=== PATIENT | male | born 1960 | race Caucasian/White ===

== ENCOUNTER 2020-06-25 18:16 | Observation (INO) | payer OTHER ==
[~2020-06-25] VITALS: Ht 177.8 cm; Wt 100.7 kg
[2020-06-25] MEDS ORDERED: ASPIRIN 81 MG CHEW TAB PO ONE (18:45)
[2020-06-25 19:13] LABS: BASOPHILS # (AUTO) 0.1 (0.0-0.1); BASOPHILS % 0.8 % (0.0-1.0); EOSINOPHILS # (AUTO) 0.3 (0.0-0.4); EOSINOPHILS % 3.3 % (0.0-6.0); HEMOGLOBIN 15.6 g/dL (14.0-18.0); LYMPHOCYTES # (AUTO) 2.8 (1.0-3.2); LYMPHOCYTES % 30.2 % (18.0-39.1); MEAN CORPUSCULAR HEMOGLOBIN 30.6 pg (28-32); MEAN CORPUSCULAR HGB CONC 36.3 g/dL (31-35); MEAN CORPUSCULAR VOLUME 84.5 fL (81-99); MONOCYTES # (AUTO) 0.9 (0.2-0.8); NEUTROPHILS # (AUTO) 5.2 (2.1-6.9); NEUTROPHILS % 55.5 % (38.7-80.0); PLATELET COUNT 349 x10e3/uL (140-360); RED BLOOD COUNT 5.09 x10e6/uL (4.3-5.7); RED CELL DISTRIBUTION WIDTH 12.4 % (11.7-14.4)
[2020-06-25 19:22] LABS: INR 0.88; PROTHROMBIN TIME 12.4 seconds (11.9-14.5)
[2020-06-25 19:23] LABS: PARTIAL THROMBOPLASTIN TIME 32.3 seconds (23.8-35.5)
[2020-06-25 19:32] LABS: ALANINE AMINOTRANSFERASE 43 IU/L (0-55); ALBUMIN 4.4 g/dL (3.5-5.0); ALBUMIN/GLOBULIN RATIO 1.4 (0.8-2.0); ALKALINE PHOSPHATASE 63 IU/L (40-150); ANION GAP 17.3 mmol/L (8-16); BLOOD UREA NITROGEN 20 mg/dL (7-26); BUN/CREATININE RATIO 17 (6-25); CALCIUM 9.8 mg/dL (8.4-10.2); CARBON DIOXIDE 25 mmol/L (22-29); CHLORIDE 104 mmol/L (98-107); CREATINE KINASE 185 IU/L (30-200); CREATININE, SERUM 1.17 mg/dL (0.72-1.25); EST GLOMERULAR FILTRATION RATE > 60 ML/MIN (60-); GLUCOSE 148 mg/dL (74-118); POTASSIUM 4.3 mmol/L (3.5-5.1); SODIUM 142 mmol/L (136-145)
[2020-06-25] MEDS ORDERED: CLOPIDOGREL BISULFATE 75 MG TAB PO ONE (21:30)
[2020-06-25] MEDS ORDERED: MORPHINE SULFATE 2 MG/ML SYR 1ML IV PRN (21:45)
[2020-06-25] MEDS ORDERED: DEXTROSE 50% SYRINGE 50 ML IV PRN (21:45)
[2020-06-25] MEDS ORDERED: ONDANSETRON HCL INJ 2MG/ML 2ML 2 MG/ML VIAL IV PRN (21:45)
[2020-06-25] MEDS: FAMOTIDINE 20 MG/2 ML VIAL IV SCH (22:24)
[2020-06-25] MEDS ORDERED: HUMALOG MI100 UNITS/ SQ (23:16)
[2020-06-25] MEDS ORDERED: METFORMIN HCL500 MG PO (23:16)
[2020-06-25] MEDS ORDERED: ATENOLOL50 MG PO (23:16)
[2020-06-25] MEDS ORDERED: FISH OIL 1,0001 EAC2 PO (23:16)
[2020-06-25] MEDS ORDERED: DIOVAN80 MG PO (23:16)
[2020-06-25 23:49] VITALS: BP 160/94
[2020-06-26] VITALS (15 sets, daily range): BP systolic 119–152; BP diastolic 78–104
[2020-06-26] MEDS ORDERED: HYDROCHLOROTHIA25 MG PO (00:17)
[2020-06-26 06:59] LABS: CHOL/HDL RATIO 4.9 (3.9-4.7)
[2020-06-26 07:25] LABS: CREATINE KINASE 119 IU/L (30-200)
[2020-06-26] MEDS: INSULIN REGULAR, HUMAN 100 UNIT/1 ML 3ML VIAL SQ SCH ×3 (07:30→16:30)
[2020-06-26] MEDS: SODIUM CHLORIDE 0.9% 1000ML 1,000 ML IV SCH ×2 (08:45→16:45)
[2020-06-26] MEDS ORDERED: ATENOLOL 50 MG TAB PO SCH (09:00)
[2020-06-26] MEDS: FAMOTIDINE 20 MG/2 ML VIAL IV SCH (09:00)
[2020-06-26] MEDS ORDERED: VALSARTAN 160 MG TAB PO SCH (09:00)
[2020-06-26] MEDS ORDERED: MIDAZOLAM HCL 2 MG/2 ML VIAL ONE (10:19)
[2020-06-26] MEDS ORDERED: FENTANYL CITRATE/PF 100MCG/2 ML INJ ONE (10:21)
[2020-06-26] MEDS ORDERED: LIDOCAINE HCL 2% LOCAL 20 ML VIAL ONE (10:21)
[2020-06-26] MEDS ORDERED: HEPARIN SOD/SOD CHLORIDE 2,000 ML ONE (10:22)
[2020-06-26] MEDS ORDERED: IOPAMIDOL 370 MG/ML 200 ML INFUS..BTL INJ ONE (10:22)
[2020-06-26] MEDS ORDERED: SODIUM CHLORIDE 0.9% 1000ML 1,000 ML ONE (10:22)
== END 2020-06-26 16:45 | disposition home or self-care (01) ==
LOC: ER 19:20 → ERHOLD 21:45 → MED/SURG2 22:25
PROVIDERS: ADMIT Internal Medicine; ATTEND Internal Medicine
DX: R07.9 Chest pain, unspecified (principal); I10 Essential (primary) hypertension; E11.9 Type 2 diabetes mellitus without complications; E78.5 Hyperlipidemia, unspecified; Z87.891 Personal history of nicotine dependence; Z88.1 Allergy status to other antibiotic agents; Z88.8 Allergy status to other drugs, medicaments and biological substances; I20.0 Unstable angina; Z87.442 Personal history of urinary calculi; U07.1 COVID-19; Z79.4 Long term (current) use of insulin
CPT/HCPCS: 36415 ×2; 71045; 80053; 80061; 82550 ×2; 82553 ×2; 84484 ×2; 85025; 85610; 85730; 93005; 93306; 93458; 99284; C1766; C1887; G0378 ×2; J2001; J2250; J3010; J7030; Q9967; U0002; 99152

== ENCOUNTER 2024-09-03 14:37 | Emergency (ER) | payer BC, OTHER ==
[~2024-09-03] VITALS: Ht 177.8 cm; Wt 95.3 kg
[~2024-09-03 14:37] MED LIST: ATENOLOL50 MG PO; DIOVAN80 MG PO; FISH OIL 1,0001 EAC2 PO; HUMALOG MI100 UNITS/ SQ; HYDROCHLOROTHIA25 MG PO; METFORMIN HCL500 MG PO
[2024-09-03 14:42] VITALS: TEMP 97.7
[2024-09-03 15:05] LABS: BASOPHILS # (AUTO) 0.1 (0.0-0.1); BASOPHILS % 0.5 % (0.0-1.0); EOSINOPHILS # (AUTO) 0.2 (0.0-0.4); EOSINOPHILS % 2.2 % (0.0-6.0); HEMATOCRIT 40.7 % (38.2-49.6); HEMOGLOBIN 12.8 g/dL (14.0-18.0); LYMPHOCYTES # (AUTO) 2.4 (1.0-3.2); LYMPHOCYTES % 24.4 % (18.0-39.1); MEAN CORPUSCULAR HEMOGLOBIN 30.3 pg (28-32); MEAN CORPUSCULAR HGB CONC 31.4 g/dL (31-35); MEAN CORPUSCULAR VOLUME 96.4 fL (81-99); MONOCYTES # (AUTO) 0.7 (0.2-0.8); MONOCYTES % 7.3 % (4.4-11.3); NEUTROPHILS # (AUTO) 6.3 (2.1-6.9); NEUTROPHILS % 65.2 % (38.7-80.0); PLATELET COUNT 259 x10e3/uL (140-360); RED BLOOD COUNT 4.22 x10e6/uL (4.3-5.7); RED CELL DISTRIBUTION WIDTH 13.3 % (11.7-14.4); WHITE BLOOD COUNT 9.63 x10e3/uL (4.8-10.8)
[2024-09-03] MEDS ORDERED: VIIBRYD20 MG PO (15:06)
[2024-09-03] MEDS ORDERED: ATENOLOL25 MG PO (15:06)
[2024-09-03] MEDS ORDERED: ALLOPURINOL300 MG PO (15:06)
[2024-09-03] MEDS ORDERED: HYDRALAZINE HCL50 MG PO (15:06)
[2024-09-03] MEDS ORDERED: ALLOPURINOL100 MG PO (15:06)
[2024-09-03] MEDS ORDERED: DIOVAN160 MG PO (15:06)
[2024-09-03] MEDS ORDERED: TRULICITY1.5 MG/0.5 SQ (15:06)
[2024-09-03] MEDS ORDERED: HUMALOG MI100 UNIT/2 SQ (15:06)
[2024-09-03] MEDS ORDERED: CLOPIDOGREL75 MG PO (15:06)
[2024-09-03 15:21] LABS: INR 0.94; PROTHROMBIN TIME 13.1 seconds (11.9-14.5)
[2024-09-03 15:22] LABS: PARTIAL THROMBOPLASTIN TIME 33.1 seconds (23.8-35.5)
[2024-09-03 15:29] LABS: ALBUMIN 4.1 g/dL (3.5-5.0); ALBUMIN/GLOBULIN RATIO 1.3 (0.8-2.0); ANION GAP 16.3 mmol/L (8-16); BILIRUBIN,TOTAL 0.4 mg/dL (0.2-1.2); CREATININE, SERUM 1.39 mg/dL (0.72-1.25); POTASSIUM 4.3 mmol/L (3.5-5.1); TOTAL PROTEIN 7.2 g/dL (6.5-8.1)
[2024-09-03] MEDS ORDERED: SODIUM CHLORIDE 0.9% 100 ML ONE (15:33)
[2024-09-03] MEDS ORDERED: IOPAMIDOL 370 MG/ML 100 ML INFUS..BTL INJ ONE (15:33)
[2024-09-03 16:39] VITALS: PULSE 78; RESP 18; O2SAT 98
== END 2024-09-03 16:41 | disposition home or self-care (01) ==
LOC: ER 14:42
DX: K92.1 Melena (principal); I10 Essential (primary) hypertension; E11.65 Type 2 diabetes mellitus with hyperglycemia; Z85.46 Personal history of malignant neoplasm of prostate; Z86.73 Personal history of transient ischemic attack (TIA), and cerebral infarction without residual deficits
CPT/HCPCS: 36415; 74174; 80053; 85025; 85610; 85730; 99283; J7050; Q9967

== ENCOUNTER 2024-09-03 23:00 | Inpatient (IN) | payer BC ==
[~2024-09-03] VITALS: Ht 177.8 cm; Wt 95.3 kg
[~2024-09-03 23:00] MED LIST changes: +ALLOPURINOL100 MG PO; +ALLOPURINOL300 MG PO; +ATENOLOL25 MG PO; +CLOPIDOGREL75 MG PO; +DIOVAN160 MG PO; +HUMALOG MI100 UNIT/2 SQ; +HYDRALAZINE HCL50 MG PO; +TRULICITY1.5 MG/0.5 SQ; +VIIBRYD20 MG PO
[2024-09-03 23:10] VITALS: TEMP 98
[2024-09-03 23:57] LABS: BASOPHILS # (AUTO) 0.1 (0.0-0.1); BASOPHILS % 0.6 % (0.0-1.0); EOSINOPHILS # (AUTO) 0.2 (0.0-0.4); HEMATOCRIT 33.5 % (38.2-49.6); HEMOGLOBIN 10.6 g/dL (14.0-18.0); LYMPHOCYTES # (AUTO) 3.2 (1.0-3.2); LYMPHOCYTES % 31.3 % (18.0-39.1); MEAN CORPUSCULAR HEMOGLOBIN 30.6 pg (28-32); MEAN CORPUSCULAR HGB CONC 31.6 g/dL (31-35); MEAN CORPUSCULAR VOLUME 96.8 fL (81-99); MONOCYTES # (AUTO) 0.9 (0.2-0.8); MONOCYTES % 8.6 % (4.4-11.3); NEUTROPHILS # (AUTO) 5.9 (2.1-6.9); NEUTROPHILS % 56.9 % (38.7-80.0); PLATELET COUNT 275 x10e3/uL (140-360); RED BLOOD COUNT 3.46 x10e6/uL (4.3-5.7); RED CELL DISTRIBUTION WIDTH 13.5 % (11.7-14.4); WHITE BLOOD COUNT 10.29 x10e3/uL (4.8-10.8)
[2024-09-04] VITALS (8 sets, daily range): BP systolic 118–158; BP diastolic 73–87; PULSE 68–82; RESP 16–20; TEMP 97.8–98.2; O2SAT 98–100
[2024-09-04 00:07] LABS: INR 0.89; PROTHROMBIN TIME 12.6 seconds (11.9-14.5)
[2024-09-04 00:16] LABS: ALBUMIN 3.9 g/dL (3.5-5.0); ALBUMIN/GLOBULIN RATIO 1.6 (0.8-2.0); ANION GAP 20.1 mmol/L (8-16); BILIRUBIN,TOTAL 0.3 mg/dL (0.2-1.2); CALCIUM 9.7 mg/dL (8.4-10.2); CREATININE, SERUM 1.39 mg/dL (0.72-1.25); POTASSIUM 4.1 mmol/L (3.5-5.1); TOTAL PROTEIN 6.4 g/dL (6.5-8.1)
[2024-09-04 00:28] LABS: TROPONIN I < 0.05 ng/mL (0.0-0.40)
[2024-09-04 00:51] LABS: CREATINE KINASE 98 IU/L (30-200)
[2024-09-04] MEDS ORDERED: SODIUM CHLORIDE 0.9% 1000ML 1,000 ML ONE (01:11)
[2024-09-04] MEDS: SODIUM CHLORIDE 0.9% 1000ML 1,000 ML IV STA (01:16)
[2024-09-04] MEDS: ONDANSETRON HCL INJ 2MG/ML 2ML 2 MG/ML VIAL IV STA (01:16)
[2024-09-04] MEDS: SODIUM CHLORIDE 0.9% 1000ML 1,000 ML IV SCH (02:45)
[2024-09-04] MEDS: Morphine 2mg Syringe 2 MG/ML SYR IV PRN (03:07)
[2024-09-04 07:36] LABS: TROPONIN I 0.009 ng/mL (0-0.300)
[2024-09-04 08:25] LABS: BACTERIA,URINE FEW /HPF; BILIRUBIN,URINE NEGATIVE (NEGATIVE); CLARITY,URINE CLEAR (CLEAR); COLOR,URINE YELLOW (YELLOW); EPITHELIAL CELLS,URINE FEW /LPF; GLUCOSE, URINE 2+ (NEGATIVE); KETONES,URINE TRACE (NEGATIVE); LEUKOCYTE ESTERASE ,URINE NEGATIVE (NEGATIVE); NITRITE,URINE NEGATIVE (NEGATIVE); PH,URINE 5.5 (5 - 7); PROTEIN,URINE DIPSTICK NEGATIVE (NEGATIVE); RBC,URINE 0-5 /HPF (0-5); URINE UROBILINOGEN 0.2 mg/dL (0.2 - 1); WBC,URINE (MAN) 0-5 /HPF (0-5)
[2024-09-04] MEDS ORDERED: HYDRALAZINE HCL 20 MG/ML VIAL IV PRN (11:00)
[2024-09-04] MEDS ORDERED: DEXTROSE 50% SYRINGE 50 ML IV PRN (11:00)
[2024-09-04] MEDS: INSULIN LISPRO 100 UNIT/1 ML 3ML VIAL SQ SCH (11:30)
[2024-09-04 13:23] LABS: HEMATOCRIT 28.1 % (38.2-49.6); HEMOGLOBIN 8.7 g/dL (14.0-18.0)
[2024-09-04 16:59] LABS: % IRON SATURATION 36 % (15-50); IRON 106 ug/dL (65-175); TOTAL IRON BINDING CAPACITY 298 ug/dL (261-478); TRANSFERRIN 213 mg/dL (174-364)
[2024-09-04 17:17] LABS: TROPONIN I 0.009 ng/mL (0-0.300)
[2024-09-04] MEDS: VALSARTAN 160 MG TAB PO SCH (17:29)
[2024-09-04] MEDS: ATENOLOL 50 MG TAB PO SCH (17:29)
[2024-09-04] MEDS: HYDRALAZINE HCL 25 MG TAB PO SCH (17:30)
[2024-09-04] MEDS: ALLOPURINOL 100 MG TAB PO SCH (21:03)
[2024-09-04] MEDS: CYANOCOBALAMIN INJ 1,000 MCG/ML VIAL IM ONE (22:22)
[2024-09-05] VITALS (9 sets, daily range): BP systolic 116–148; BP diastolic 60–79; PULSE 67–75; RESP 18–20; TEMP 97.5–98.6; O2SAT 97–99
[2024-09-05 06:09] LABS: BASOPHILS # (AUTO) 0.1 (0.0-0.1); BASOPHILS % 0.6 % (0.0-1.0); EOSINOPHILS # (AUTO) 0.2 (0.0-0.4); EOSINOPHILS % 2.4 % (0.0-6.0); HEMATOCRIT 22.9 % (38.2-49.6); LYMPHOCYTES # (AUTO) 3.1 (1.0-3.2); LYMPHOCYTES % 36.5 % (18.0-39.1); MEAN CORPUSCULAR HEMOGLOBIN 30.8 pg (28-32); MEAN CORPUSCULAR HGB CONC 31.4 g/dL (31-35); MEAN CORPUSCULAR VOLUME 97.9 fL (81-99); MONOCYTES # (AUTO) 0.5 (0.2-0.8); MONOCYTES % 6.2 % (4.4-11.3); NEUTROPHILS # (AUTO) 4.6 (2.1-6.9); NEUTROPHILS % 53.9 % (38.7-80.0); PLATELET COUNT 194 x10e3/uL (140-360); RED BLOOD COUNT 2.34 x10e6/uL (4.3-5.7); RED CELL DISTRIBUTION WIDTH 13.3 % (11.7-14.4); WHITE BLOOD COUNT 8.51 x10e3/uL (4.8-10.8)
[2024-09-05 06:11] LABS: HEMOGLOBIN 7.2 g/dL (14.0-18.0)
[2024-09-05 06:38] LABS: ALBUMIN/GLOBULIN RATIO 1.6 (0.8-2.0); BILIRUBIN,TOTAL 0.4 mg/dL (0.2-1.2); CALCIUM 8.2 mg/dL (8.4-10.2); CREATININE, SERUM 0.97 mg/dL (0.72-1.25); TOTAL PROTEIN 4.9 g/dL (6.5-8.1)
[2024-09-05] MEDS: CYANOCOBALAMIN INJ 1,000 MCG/ML VIAL IM SCH (09:33)
[2024-09-05] MEDS: OMEGA 3 POLYUNSAT FATTY ACIDS 1000 MG SOFTGEL PO SCH (09:34)
[2024-09-05] MEDS: BISACODYL 5 MG TAB EC PO ONE ×2 (12:37→16:57)
[2024-09-05] MEDS: PEG (High)/E-LYTE SOLN 4,000 ML BTL PO ONE (12:38)
[2024-09-05 16:37] LABS: HEMATOCRIT 24.1 % (38.2-49.6); HEMOGLOBIN 7.6 g/dL (14.0-18.0)
[2024-09-05] MEDS: SODIUM CHLORIDE 0.9% 1000ML 1,000 ML IV SCH (16:52)
[2024-09-06] MEDS: CITRATE OF MAGNESIA 300ML BOTTLE PO ONE ×2 (00:52→04:28)
[2024-09-06 03:14] VITALS: BP 148/80; PULSE 85; RESP 18; TEMP 97.8; O2SAT 99
[2024-09-06 06:13] LABS: BASOPHILS % 0.3 % (0.0-1.0); EOSINOPHILS # (AUTO) 0.2 (0.0-0.4); EOSINOPHILS % 2.5 % (0.0-6.0); HEMATOCRIT 23.4 % (38.2-49.6); HEMOGLOBIN 7.5 g/dL (14.0-18.0); LYMPHOCYTES # (AUTO) 2.4 (1.0-3.2); LYMPHOCYTES % 27.2 % (18.0-39.1); MEAN CORPUSCULAR HEMOGLOBIN 31.1 pg (28-32); MEAN CORPUSCULAR HGB CONC 32.1 g/dL (31-35); MEAN CORPUSCULAR VOLUME 97.1 fL (81-99); MONOCYTES # (AUTO) 0.6 (0.2-0.8); MONOCYTES % 6.8 % (4.4-11.3); NEUTROPHILS # (AUTO) 5.4 (2.1-6.9); NEUTROPHILS % 62.9 % (38.7-80.0); PLATELET COUNT 197 x10e3/uL (140-360); RED BLOOD COUNT 2.41 x10e6/uL (4.3-5.7); RED CELL DISTRIBUTION WIDTH 13.1 % (11.7-14.4); WHITE BLOOD COUNT 8.67 x10e3/uL (4.8-10.8)
[2024-09-06 06:46] LABS: ANION GAP 13.9 mmol/L (8-16); CALCIUM 8.6 mg/dL (8.4-10.2); CREATININE, SERUM 1.02 mg/dL (0.72-1.25); POTASSIUM 3.9 mmol/L (3.5-5.1)
[2024-09-06 08:33] VITALS: BP 114/57; PULSE 74; RESP 19; TEMP 98.1; O2SAT 100
[2024-09-06 09:29] VITALS: BP 114/57; PULSE 74; RESP 19; TEMP 98.1; O2SAT 100
[2024-09-06] MEDS ORDERED: MIDAZOLAM HCL 2 MG/2 ML VIAL ONE (12:04)
[2024-09-06] MEDS ORDERED: PROPOFOL IV EMULSION 50 ML IV ONE (13:04)
[2024-09-06] MEDS ORDERED: LIDOCAINE HCL 2% LOCAL INJ 5 ML SDV VIAL INJ ONE (13:04)
[2024-09-06 16:19] VITALS: BP 149/76; PULSE 62; RESP 19; TEMP 97.6; O2SAT 100
[2024-09-06 20:54] VITALS: BP 149/76; PULSE 62; RESP 19; TEMP 97.6; O2SAT 100
[2024-09-07 00:44] VITALS: BP 157/76; PULSE 74; RESP 18; TEMP 97.2; O2SAT 100
[2024-09-07 04:29] VITALS: BP 148/75; PULSE 73; RESP 17; TEMP 97.2; O2SAT 97
[2024-09-07 07:04] LABS: BASOPHILS % 0.3 % (0.0-1.0); EOSINOPHILS # (AUTO) 0.2 (0.0-0.4); HEMATOCRIT 22.5 % (38.2-49.6); HEMOGLOBIN 7.6 g/dL (14.0-18.0); LYMPHOCYTES # (AUTO) 2.1 (1.0-3.2); LYMPHOCYTES % 23.6 % (18.0-39.1); MEAN CORPUSCULAR HGB CONC 33.8 g/dL (31-35); MEAN CORPUSCULAR VOLUME 91.8 fL (81-99); MONOCYTES # (AUTO) 0.7 (0.2-0.8); MONOCYTES % 7.5 % (4.4-11.3); PLATELET COUNT 186 x10e3/uL (140-360); RED BLOOD COUNT 2.45 x10e6/uL (4.3-5.7); RED CELL DISTRIBUTION WIDTH 14.2 % (11.7-14.4); WHITE BLOOD COUNT 9.03 x10e3/uL (4.8-10.8)
[2024-09-07 07:32] VITALS: BP 154/72; PULSE 71; RESP 18; TEMP 97.4; O2SAT 100
[2024-09-07 07:55] LABS: ANION GAP 12.9 mmol/L (8-16); CALCIUM 8.6 mg/dL (8.4-10.2); CREATININE, SERUM 1.12 mg/dL (0.72-1.25); POTASSIUM 3.9 mmol/L (3.5-5.1)
[2024-09-07] MEDS: ONDANSETRON HCL INJ 2MG/ML 2ML 2 MG/ML VIAL IV PRN (10:20)
[2024-09-07 11:38] VITALS: BP 165/88; PULSE 82; RESP 17; TEMP 97.8; O2SAT 98
== END 2024-09-07 12:30 | disposition home or self-care (01) | DRG 378 ==
LOC: ER 23:08 → ERHOLD 09-04 00:22 → MED/SURG3 09-04 02:10
PROVIDERS: ADMIT Internal Medicine; ATTEND Internal Medicine
PROC: 0DJD8ZZ Inspection of Lower Intestinal Tract, Via Natural or Artificial Opening Endoscopic (ICD-10-PCS; principal; 2024-09-06 13:52)
DX: K57.31 Diverticulosis of large intestine without perforation or abscess with bleeding (principal); D62 Acute posthemorrhagic anemia; D68.32 Hemorrhagic disorder due to extrinsic circulating anticoagulants; K52.1 Toxic gastroenteritis and colitis; T45.525A Adverse effect of antithrombotic drugs, initial encounter; T38.3X5A Adverse effect of insulin and oral hypoglycemic [antidiabetic] drugs, initial encounter; Y92.009 Unspecified place in unspecified non-institutional (private) residence as the place of occurrence of the external cause; K64.8 Other hemorrhoids; I12.9 Hypertensive chronic kidney disease with stage 1 through stage 4 chronic kidney disease, or unspecified chronic kidney disease; E11.22 Type 2 diabetes mellitus with diabetic chronic kidney disease; N18.2 Chronic kidney disease, stage 2 (mild); Z79.84 Long term (current) use of oral hypoglycemic drugs; Z79.4 Long term (current) use of insulin; Z86.73 Personal history of transient ischemic attack (TIA), and cerebral infarction without residual deficits; Z85.46 Personal history of malignant neoplasm of prostate; Z79.02 Long term (current) use of antithrombotics/antiplatelets; Z79.899 Other long term (current) drug therapy
CPT/HCPCS: 36415; 45378; 80048; 80053; 81001; 82550; 82607; 82746; 82948; 83540; 84466; 84484; 85014; 85018; 85025; 85045; 85610; 86850; 86900; 93005; 99284; J2003; J2250; J2270; J2405; J2470; J3420; J7030